=== PATIENT | male | born 1995 | race Two or more races ===

== ENCOUNTER 2019-04-06 22:27 | Emergency (ER) | payer OTHER ==
[~2019-04-06] VITALS: Ht 172.7 cm; Wt 77.0 kg
[2019-04-07 02:16] VITALS: BP 132/82
== END 2019-04-07 02:17 | disposition home or self-care (01) ==
LOC: ER 22:27
DX: L03.116 Cellulitis of left lower limb (principal)
CPT/HCPCS: 99283